=== PATIENT | female | born 1985 | race Caucasian/White ===

== ENCOUNTER 2017-05-22 23:38 | Emergency (ER) | payer OTHER ==
[~2017-05-22] VITALS: Ht 154.9 cm; Wt 81.6 kg
[2017-05-23 00:12] VITALS: Ht 154.9 cm; Wt 81.6 kg
[2017-05-23 03:14] LABS: BASOPHIL % 0.4 % (0-2); PLATELET COUNT 360 x10^3mcL (130-400); RED CELL DISTRIBUTION WIDTH 12.9 % (11.5-14.5)
[2017-05-23 03:31] LABS: microscopic required? NO
[2017-05-23 03:42] LABS: UA SPECIFIC GRAVITY 1.025 (1.005-1.035); urine erythrocyte NEGATIVE (NEGATIVE)
[2017-05-23 05:39] LABS: ALBUMIN 3.6 g/dL (3.4-5.0); ALKALINE PHOSPHATASE 101 U/L (46-116); BILIRUBIN TOTAL 0.3 mg/dL (0.20-1.00); TOTAL PROTEIN, SERUM 7.4 g/dL (6.4-8.2)
[2017-05-23 05:41] LABS: AMPHETAMINE QUAL UR NONE DETECTED (NEG <=1000)
[2017-05-23 06:36] LABS: ALT/SGPT 54 U/L (14-59); AST/SGOT 15 U/L (15-37); FREE T4 1.16 ng/dL (0.76-1.46); LIPASE 194 IU/L (73-393)
[2017-05-23 06:43] LABS: CALCIUM 9.2 mg/dL (8.5-10.1); CARBON DIOXIDE 22.4 mmol/L (21-32); CHLORIDE SERUM 102 mmol/L (98-107); CREATININE SERUM 0.8 mg/dL (0.6-1.0); GFR1 > 60 mL/min; GLUCOSE SERUM 111 mg/dL (74-106); SODIUM SERUM 136 mmol/L (136-145)
[2017-05-23 07:18] VITALS: BP 122/61
== END 2017-05-23 07:18 | disposition home or self-care (01) ==
LOC: ED 23:38
PROVIDERS: Emergency Medicine
DX: R07.89 Other chest pain (principal); R11.2 Nausea with vomiting, unspecified; R06.02 Shortness of breath; R42 Dizziness and giddiness; Z88.6 Allergy status to analgesic agent
CPT/HCPCS: 36415; 83880; 84439; 87804; G0480; J7030

== ENCOUNTER 2017-06-11 17:51 | Emergency (ER) | payer OTHER ==
[~2017-06-11] VITALS: Ht 152.4 cm; Wt 81.6 kg
[2017-06-11 17:57] VITALS: Ht 152.4 cm; Wt 81.6 kg
[2017-06-11 22:39] VITALS: BP 118/78
== END 2017-06-11 22:39 | disposition home or self-care (01) ==
LOC: ED 17:51
DX: T78.1XXA Other adverse food reactions, not elsewhere classified, initial encounter (principal); Z88.6 Allergy status to analgesic agent; Z91.011 Allergy to milk products; Z91.018 Allergy to other foods; X58.XXXA Exposure to other specified factors, initial encounter
CPT/HCPCS: J1200; J2930; J3490; J7050

== ENCOUNTER 2017-07-03 00:27 | Emergency (ER) | payer OTHER ==
[~2017-07-03] VITALS: Ht 152.4 cm; Wt 78.5 kg
[2017-07-03 00:35] VITALS: Ht 152.4 cm; Wt 78.5 kg
[2017-07-03 03:45] VITALS: BP 139/82
== END 2017-07-03 03:10 | disposition home or self-care (01) ==
LOC: ED 00:27
DX: T78.40XA Allergy, unspecified, initial encounter (principal); K21.9 Gastro-esophageal reflux disease without esophagitis; Z91.011 Allergy to milk products; Z91.018 Allergy to other foods; Z88.6 Allergy status to analgesic agent; X58.XXXA Exposure to other specified factors, initial encounter
CPT/HCPCS: J0171; J1200; J7512

== ENCOUNTER 2017-07-21 11:43 | Emergency (ER) | payer OTHER ==
[~2017-07-21] VITALS: Ht 152.4 cm; Wt 78.1 kg
[2017-07-21 11:48] VITALS: Ht 152.4 cm; Wt 78.1 kg
[2017-07-21 13:40] VITALS: BP 118/68
== END 2017-07-21 13:40 | disposition home or self-care (01) ==
LOC: ED 11:43
DX: T78.07XA Anaphylactic reaction due to milk and dairy products, initial encounter (principal); Z88.6 Allergy status to analgesic agent; K21.9 Gastro-esophageal reflux disease without esophagitis
CPT/HCPCS: J0171; J2930; J3490; J7613; J7644

== ENCOUNTER 2018-09-12 21:39 | Emergency (ER) | payer OTHER ==
[~2018-09-12] VITALS: Ht 152.4 cm; Wt 83.5 kg
[2018-09-12 22:40] VITALS: Ht 152.4 cm; Wt 83.5 kg
[2018-09-12 23:44] LABS: BASOPHIL % 0.6 % (0-2); PLATELET COUNT 320 x10^3mcL (130-400); RED CELL DISTRIBUTION WIDTH 12.9 % (11.5-14.5)
[2018-09-13 01:43] VITALS: BP 121/79
== END 2018-09-13 01:43 | disposition home or self-care (01) ==
LOC: ED 21:39
PROVIDERS: Emergency Medicine
DX: N93.9 Abnormal uterine and vaginal bleeding, unspecified (principal); K21.9 Gastro-esophageal reflux disease without esophagitis; Z88.6 Allergy status to analgesic agent; Z91.011 Allergy to milk products; Z91.018 Allergy to other foods
CPT/HCPCS: 36415